=== PATIENT | female | born 1960 | race Caucasian/White ===

== ENCOUNTER → 2019-04-18 | Outpatient (CLI) | payer BC | LOC: MC.RAD 04-11 13:45 | DX: Z12.31 Encounter for screening mammogram for malignant neoplasm of breast (principal); Z98.82 Breast implant status ==

== ENCOUNTER 2019-11-22 18:29 | Emergency (ER) | payer BC ==
[~2019-11-22] VITALS: Ht 157.5 cm; Wt 50.0 kg
[2019-11-22 18:32] VITALS: TEMP 98.8
[2019-11-22] MEDS ORDERED: ATIVAN 1MG T1 MG/TAB PO (18:56)
[2019-11-22] MEDS ORDERED: ATIVAN 0.50.5 MG/TAB PO (18:56)
[2019-11-22 19:06] LABS: BASO # 0.1 (0.0-0.2); BASO % 0.9 % (0.0-2.0); EOS # 0.2 (0.0-0.7); EOS % 3.4 % (0-4.0); GRAN # 3.3 (1.4-6.5); GRAN % 58.2 % (42.2-75.2); HEMOGLOBIN 12.4 g/dl (12.5-16.0); LYMPH # 1.5 (1.2-3.4); LYMPH % 26.9 % (20.0-51.0); MEAN CELL VOLUME 85 fl (80.0-100.0); MEAN CORPUSCULAR HEMOGLOBIN 29 pg (27.0-31.0); MEAN CORPUSCULAR HGB CONC 35 g/dl (33.0-37.0); MEAN PLATELET VOLUME 8.5 fl (7.4-10.4); MONO # 0.6 (0.1-0.6); MONO % 10.4 % (1.7-9.3); PLATELET COUNT 301 K/mm3 (130-400); RED BLOOD COUNT 4.22 M/mm3 (4.10-5.30)
[2019-11-22 19:13] LABS: HEMATOCRIT 35.7 % (37.0-47.0)
[2019-11-22 19:32] LABS: ALANINE AMINOTRANSFERASE 17 U/L (4-34); ALBUMIN 4.7 gm/dL (3.5-5.0); ALKALINE PHOSPHATASE 145 U/L (50-136); ANION GAP 10 mmol/L (7-16); AST,SGOT 27 U/L (15-37); BILIRUBIN,TOTAL 0.4 mg/dL (0.0-1.0); BLOOD UREA NITROGEN 7 mg/dL (7-17); CALCIUM 9.4 mg/dL (8.4-10.2); CARBON DIOXIDE 23 mmol/L (22-30); CHLORIDE 97 mmol/L (98-107); CREATININE, serum 0.61 (0.52-1.25); GLUCOSE 104 mg/dL (74-106); MAGNESIUM 1.8 mg/dL (1.6-2.3); SODIUM 129 mmol/L (137-145); TOTAL PROTEIN 7.3 gm/dL (6.4-8.2)
[2019-11-22 19:34] LABS: C-REACTIVE PROTEIN < 0.5 mg/dL (0.0-0.9)
[2019-11-22 19:41] LABS: TROPONIN-I < 0.012 ng/mL (0.000-0.035)
[2019-11-22 20:07] LABS: ERYTHROCYTE SEDIMENTATION RATE 4 mm/hr (0-30)
[2019-11-22 22:29] VITALS: BP 141/83; PULSE 77
== END 2019-11-22 22:27 | disposition home or self-care (01) ==
LOC: COL.ER 18:29
PROVIDERS: Emergency Medicine
DX: R51 Headache (principal); F41.9 Anxiety disorder, unspecified; R42 Dizziness and giddiness; G40.909 Epilepsy, unspecified, not intractable, without status epilepticus; F17.200 Nicotine dependence, unspecified, uncomplicated; H53.8 Other visual disturbances; Z88.6 Allergy status to analgesic agent
CPT/HCPCS: J1790; Q9967